=== PATIENT | female | born 1955 | race Caucasian/White ===

== ENCOUNTER 2020-10-14 16:35 | Emergency (ER) | payer MEDICARE ==
[~2020-10-14] VITALS: Ht 154.9 cm; Wt 141.0 kg
[2020-10-14 16:45] VITALS: BP 164/69
--- NOTE | 2020-10-14 18:08 | NUR ---
ECHO TECH: PT TO ROOM AT THIS TIME FROM LOBBY WITH ED RN VIA WHEELCHAIR FOR PT COMFORT.
[2020-10-14] MEDS ORDERED: KETOROLAC 30 MG/1 ML IM ONE (20:00)
[2020-10-14] MEDS ORDERED: KETOROLAC 30 MG/1 ML ONE (20:08)
== END 2020-10-14 20:26 | disposition home or self-care (01) ==
LOC: ED 17:05
DX: S80.01XA Contusion of right knee, initial encounter (principal); M25.461 Effusion, right knee; I10 Essential (primary) hypertension; Z86.39 Personal history of other endocrine, nutritional and metabolic disease; W01.0XXA Fall on same level from slipping, tripping and stumbling without subsequent striking against object, initial encounter; Y93.89 Activity, other specified; Y92.410 Unspecified street and highway as the place of occurrence of the external cause; Y99.8 Other external cause status
CPT/HCPCS: 73564; 96372; 99283; J1885